=== PATIENT | female | born 1960 | race Two or more races ===

== ENCOUNTER 2017-11-19 11:40 | Outpatient (CLI) | payer OTHER | END 2017-11-19 12:11 | disposition home or self-care (01) | LOC: SONOGRAMA 11:40 → MAMO-SONO 13:15 | DX: M75.102 Unspecified rotator cuff tear or rupture of left shoulder, not specified as traumatic (principal) ==

== ENCOUNTER 2023-08-30 17:40 | Emergency (ER) | payer OTHER ==
[~2023-08-30] VITALS: Ht 160 cm; Wt 59.9 kg
[~2023-08-30 17:40] MED LIST: INDERAL LA80 MG
[2023-08-30] MEDS ORDERED: COZAAR50 MG PO (17:46)
[2023-08-30 20:19] LABS: HEMOGLOBIN 11.8 g/dL (12.0-15.00); MEAN CELL VOLUME 84.9 fL (80.00-100.00); MEAN CORPUSCULAR HEMOGLOBIN 28.7 pg (27.00-32.0); MEAN CORPUSCULAR HGB CONC 33.8 g/dl (32.0-36.0); PLATELET COUNT 396 K/uL (150-450); RED BLOOD COUNT 4.13 M/uL (4.00-6.00); RED CELL DISTRIBUTION WIDTH 14.1 % (11.5-14.5)
[2023-08-30] MEDS ORDERED: MEDROLPACK PO (21:39)
[2023-08-30] MEDS ORDERED: QC TUSSIN DM L118 ML PO (21:39)
[2023-08-30] MEDS ORDERED: LEVALBUTER1.25 MG/3 IH (21:39)
== END 2023-08-30 21:50 | disposition home or self-care (01) ==
LOC: ER 17:41
PROVIDERS: Nurse Practitioner Family
DX: J06.9 Acute upper respiratory infection, unspecified (principal); Z20.822 Contact with and (suspected) exposure to COVID-19; I10 Essential (primary) hypertension; Z88.0 Allergy status to penicillin; Z88.6 Allergy status to analgesic agent

== ENCOUNTER 2024-04-24 16:32 | Outpatient (CLI) | payer OTHER ==
[~2024-04-24 16:32] MED LIST changes: +COZAAR50 MG PO; +LEVALBUTER1.25 MG/3 IH; +MEDROLPACK PO; +QC TUSSIN DM L118 ML PO; +TYLENOL ARTHRI650 MG
== END 2024-04-24 16:34 | disposition home or self-care (01) ==
LOC: RAD 16:32
PROVIDERS: ATTEND Physical Medicine & Rehabilitation
DX: M54.2 Cervicalgia (principal)

== ENCOUNTER 2024-11-13 14:46 | Emergency (ER) | payer OTHER ==
[~2024-11-13] VITALS: Ht 160 cm; Wt 61.2 kg
[2024-11-13] MEDS ORDERED: ORPHENADRINE CITRATE 30 MG/ML AMPUL IM STA (15:58)
[2024-11-13] MEDS ORDERED: DEXAMETHASONE SODIUM PHOSPHATE 4 MG/ML VIAL IM STA (15:59)
[2024-11-13] MEDS ORDERED: ORPHENADRINE CITRATE 30 MG/ML AMPUL ONE (16:20)
[2024-11-13] MEDS ORDERED: DEXAMETHASONE SODIUM PHOSPHATE 4 MG/ML VIAL ONE (16:20)
[2024-11-13] MEDS ORDERED: DEXAMETHASONE0.5 MG PO (18:38)
== END 2024-11-13 18:41 | disposition home or self-care (01) ==
LOC: ER 14:47
DX: M25.551 Pain in right hip (principal); I10 Essential (primary) hypertension; Z88.0 Allergy status to penicillin; Z88.6 Allergy status to analgesic agent

== ENCOUNTER 2024-11-18 12:10 | Outpatient (CLI) | payer OTHER ==
[~2024-11-18 12:10] MED LIST changes: +DEXAMETHASONE0.5 MG PO
== END 2024-11-18 12:11 | disposition home or self-care (01) ==
LOC: SONOGRAMA 12:10
PROVIDERS: ATTEND Physical Medicine & Rehabilitation
DX: M25.512 Pain in left shoulder (principal)